=== PATIENT | female | born 1945 | race Caucasian/White ===

== ENCOUNTER 2019-09-21 21:42 | Emergency (ER) | payer MEDICARE ==
[2019-09-21] MEDS ORDERED: Acetaminophen 500 MG Tab PO ONE (22:00)
[2019-09-21] MEDS ORDERED: Ibuprofen 400 MG Tab PO ONE (22:00)
[2019-09-21] MEDS ORDERED: Bupivacaine 0.5% 10 ML SDV ONE (22:17)
[2019-09-21] MEDS: Bupivacaine 0.5% 10 ML SDV INJECT ONE (22:18)
--- NOTE | 2019-09-21 22:52 | CR ---
INDICATION: Pain after fall. TECHNIQUE: Three views right wrist. IMPRESSION: Roughly 40 degrees dorsal angulated impacted Colles fracture of the distal radial metaphysis. Apparent chronic mineralized ossicle inferior from the ulnar styloid likely related to prior trauma. Demineralization diffusely. Dictated by Chris Huertas MD @ Sep 21 2019 10:49PM Signed by Dr. Chris Huertas @ Sep 21 2019 10:50PM
--- NOTE | 2019-09-21 23:17 | EDM.PDOC ---
ED HPI GENERAL MEDICAL PROBLEM - General Chief Complaint: Upper Extremity Injury/Pain Stated Complaint: LEFT ARM INJURY Time Seen by Provider: 09/21/19 21:47 Source of Information: Reports: Patient History Limitations: Reports: No Limitations - History of Present Illness INITIAL COMMENTS - FREE TEXT/NARRATIVE: 73-year-old female with no past medical history presenting with a right wrist injury. Approximately 2 hours ago, the patient was getting out of her tractor when she missed a step and fell, landing on her right wrist. Noted pain and deformity to the distal right forearm. Took 2 Tylenol tablets prior to arrival without relief of pain. Denies striking her head, losing consciousness, or any other complaints. 10/10 pain to the distal right forearm, worse with movement, better with rest, nonradiating. Right Wrist Pain Score (Numeric/FACES): 10 - Related Data Allergies Allergy/AdvReac Type Severity Reaction Status Date / Time Penicillins Allergy Anaphylactic Verified 09/21/19 21:54 Shock Home Meds: Home Meds . 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 Musculoskeletal History: Reports: None Neurological History: Reports: None Psychiatric History: Reports: None Endocrine/Metabolic History: Reports: None Hematologic History: Reports: None Immunologic History: Reports: None Oncologic (Cancer) History: Reports: None Dermatologic History: Reports: None - Infectious Disease History Infectious Disease History: Reports: None - Past Surgical History Head Surgeries/Procedures: Reports: None GI Surgical History: Reports: Appendectomy, Cholecystectomy, Colonoscopy Female Surgical History: Reports: Hysterectomy Social & Family History - Family History Family Medical History: Noncontributory - Tobacco Use Smoking Status *Q: Former Smoker Used Tobacco, but Quit: Yes Month/Year Tobacco Last Used: 2014 - Caffeine Use Caffeine Use: Reports: None - Recreational Drug Use Recreational Drug Use: No Review of Systems - Review of Systems Review Of Systems: See Below Constitutional: Denies: Fever Eyes: Reports: No Symptoms Ears: Reports: No Symptoms Mouth/Throat: Reports: No Symptoms Respiratory: Denies: Shortness of Breath Cardiovascular: Denies: Chest Pain GI/Abdominal: Denies: Abdominal Pain, Nausea, Vomiting Musculoskeletal: Reports: Arm Pain Skin: Reports: Bruising Neurological: Denies: Confusion, Headache, Paresthesia, Tingling Psychiatric: Reports: No Symptoms ED EXAM, GENERAL - Physical Exam Exam: See Below Free Text/Narrative:: Vital signs reviewed. Nursing notes reviewed. Constitutional: Awake, alert, non-distressed. Head: Normocephalic, atraumatic. Eyes: EOMI, conjunctiva normal, no discharge, no scleral icterus. Ears, Nose, Throat: External ears and ears normal, moist oral mucosa. Cardiovascular: 2+ right radial pulse, capillary refill less than 2 seconds in all fingers of the right hand. Pulmonary: normal work of breathing, no accessory muscle use. Abdomen/GI: Soft, nontender, nondistended, no guarding or rigidity, no masses. Musculoskeletal: Deformity of the right distal forearm. Limited range of motion of the right wrist due to pain. Able to make okay sign, thumbs up, and abduct all fingers of the right hand. Integumentary: Appropriate color for ethnicity, warm, dry, no pallor or jaundice , no rash. Neurologic: Alert, answering questions appropriately, normal speech, no facial droop, moving all extremities well. Sensation intact to light touch to all right fingers. Psychiatric: Appropriate mood and affect, normal thought process. ED TRAUMA EXTREMITY PROCEDURES - Joint Reduction Right Wrist Sedation: Hematoma/Fracture Block Local Anesthesia - Bupivicaine (Marcaine): 0.5% Plain Local Anesthetic Volume: 5cc Pre-Procedure NV Status: Normal Post-Procedure NV Status: Normal Technique: Traction/Counter Traction Number of Attempts: 2 Post-Reduction Imaging: Acceptably Reduced, Fracture Seen Joint Reduction Complications: No Progress/Comments: Patient underwent two hematoma blocks with bupivacaine. We performed initial fracture reduction which was unsatisfactory with residual angulatio. Repeated the hematoma block and then repeated the fracture reduction a second time, with improved reduction. There is still some residual angulation. Splinted with Ortho-Glass, stockinette, and Bernard bandages. Circulation, motor, sensation intact pre-and post splinting. Placed in a simple sling. Course - Vital Signs Text/Narrative:: Patient hemodynamically stable, afebrile, well-appearing, looks nontoxic. Differential diagnosis includes but is not limited to: fracture, dislocation, soft tissue injury 2315: X-rays returned showing a roughly 40 degree dorsal angulated impacted Colles' fracture of the distal radial metaphysis. Patient is currently in weighted finger traps and has already undergone hematoma block with bupivacaine at approximately 2230. 2048: Attempted initial fracture reduction attempt, with unsatisfactory reduction. Patient placed back in finger traps, will re-reduced and approximately half an hour. 0045: Repeat reduction performed, awaiting postreduction x-rays. 00 57: Repeat reduction appears improved compared to the initial attempt on postreduction x-rays. Patient placed in a simple arm sling. Will plan to discharge home with outpatient orthopedic surgery follow-up in 1 to 2 weeks. Discussed pain control options, patient opts for extra strength acetaminophen and ibuprofen [id number]. Strict emergency department return precautions were provided, patient indicated understanding. All questions were answered prior to departure. Discharged in good condition. Last Recorded V/S: Last Vital Signs Temp 36.2 C 09/21/19 21:53 Pulse 84 09/21/19 21:53 Resp 18 09/21/19 21:53 BP 133/68 09/21/19 21:53 Pulse Ox 94 L 09/21/19 21:53 - Orders/Labs/Meds Orders: Active Orders 24 hr Category Date Time Status Wrist Comp Min 3V Rt [CR] Stat Exams 09/22/19 00:44 Taken Meds: Medications Discontinued Medications Generic Name Dose Route Start Last Admin Trade Name Rodrigo PRN Reason Stop Dose Admin Acetaminophen 1,000 mg 09/21/19 22:00 09/21/19 22:09 Tylenol Extra Strength PO 09/21/19 22:01 1,000 mg ONETIME ONE Administration Bupivacaine HCl Confirm 09/21/19 22:17 Sensorcaine-Mpf 0.5% Administered 09/21/19 22:18 Dose 10 ml .ROUTE .STK-MED ONE Bupivacaine HCl Confirm 09/22/19 00:33 Sensorcaine-Mpf 0.5% Administered 09/22/19 00:34 Dose 10 ml .ROUTE .STK-MED ONE Ibuprofen 400 mg 09/21/19 22:00 09/21/19 22:09 Motrin PO 09/21/19 22:01 400 mg ONETIME ONE Administration Departure - Departure Time of Disposition: 00:58 Disposition: Home, Self-Care 01 Condition: Good Clinical Impression: Closed Colles' fracture Qualifiers: Encounter type: initial encounter Laterality: right Qualified Code(s): S52.531A - Colles' fracture of right radius, initial encounter for closed fracture - Discharge Information *PRESCRIPTION DRUG MONITORING PROGRAM REVIEWED*: Not Applicable *COPY OF PRESCRIPTION DRUG MONITORING REPORT IN PATIENT RICHARD: Not Applicable Instructions: Forearm Fracture, Pediatric, [id number], Closed Reduction for Wrist or Forearm, Cast or Splint Care, Adult Referrals: [facility] - Orthopaedics [Provider Group] - 1 Week (For follow-up of Colles' fracture) Forms: ED Department Discharge Additional Instructions: Be sure to keep your splint dry. If it is raining, snowing, or if you are going to bathe or shower, you will need to cover your splint with a large plastic bag. If the splint becomes wet, it will dissolve and no longer be functional and you will have to have the splint replaced in the emergency department or in the orthopedic surgery clinic. If you notice that your fingers or toes become numb, start tingling, turned pale or purple, those are signs at the splint may be on too tightly. Gently loosen the adhesive bandages and immediately return to the emergency department so we can reevaluate the splint placement. Thank you for choosing the [facility] emergency department in [place] for your medical needs today. It was a pleasure caring for you. You were seen in the emergency department for a right forearm (Colles') fracture. You will need to follow-up in the orthopaedic surgery clinic in 1 to 2 weeks for follow-up fracture care. There is a chance that you will need an operation to fix your fractured forearm. For pain relief, I recommend extra strength [id number] acetaminophen, 500- 1000 mg every 6 hours. I also recommend over the strength ibuprofen, 400 mg every 6 hours. Maximum 2400 mg of acetaminophen or 3200 mg of ibuprofen in 24- hour period. Please return the emergency department immediately if your symptoms worsen or if you feel worse. The following information is given to patients seen in the emergency department who are being discharged. This information is to outline your options for follow -up care. We provide all patients seen in our emergency department with a follow -up referral. The need for follow-up, as well as the timing and circumstances, are variable depending upon the specifics of your emergency department visit. If you don't have a primary care physician on staff, we will provide you with a referral. We always advise you to contact your personal physician following an emergency department visit to inform them of the circumstance of the visit and for follow-up with them and/or the need for any referrals to a consulting specialist. The emergency department will also refer you to a specialist when appropriate. This referral assures that you have the opportunity for follow-up care with a specialist. All of these measure are taken in an effort to provide you with optimal care, which includes your follow-up. Under all circumstances we always encourage you to contact your private physician who remains a resource for coordinating your care. When calling for follow-up care, please make the office aware that this follow-up is from your recent emergency room visit. If for any reason you are refused follow-up, please contact the [facility] Emergency Department at and asked to speak to the emergency department charge nurse. If you do not have a primary care physician that is caring for you, you can contact these clinics below to set up an appointment to establish care: [facility] [address] [place] [id number] [address] Sepsis Event Note - Evaluation Sepsis Screening Result: No Definite Risk - Focused Exam Vital Signs: Vital Signs Temp Pulse Resp BP Pulse Ox 09/21/19 21:53 36.2 C 84 18 133/68 94 L Date Exam was Performed: 09/22/19 Time Exam was Performed: 01:02 - My Orders Last 24 Hours: My Active Orders 09/22/19 00:44 Wrist Comp Min 3V Rt [CR] Stat - Assessment/Plan Last 24 Hours: My Active Orders 09/22/19 00:44 Wrist Comp Min 3V Rt [CR] Stat
[2019-09-22] MEDS ORDERED: Bupivacaine 0.5% 10 ML SDV ONE (00:33)
--- NOTE | 2019-09-22 00:38 | CR ---
INDICATION: Post reduction TECHNIQUE: Three views right wrist through a cast, 11:39 p.m. COMPARISON: 10:12 p.m. Bones: Impacted distal radius fracture. Joint spaces: Unremarkable. Soft tissues: Unremarkable. IMPRESSION: Impacted distal radius fracture with reduced angulation compared to pre reduction views. Dictated by Pacheco Mahajan MD @ 09/22/2019 12:36:35 AM Dictated by: Pacheco Mahajan MD @ 09/22/2019 00:36:41 (Electronically Signed)
--- NOTE | 2019-09-22 01:17 | CR ---
INDICATION: Postreduction TECHNIQUE: Three views through a cast 12:52 a.m. COMPARISON: 08/25/2019 11:39 p.m. FINDINGS: Bones: Impacted distal radius fracture with reduced angulation compared to pre reduction views. Joint spaces: Unremarkable. Soft tissues: Unremarkable. IMPRESSION: Impacted distal radius fracture with reduced angulation compared to previous junction views. Dictated by Pacheco Mahajan MD @ 09/22/2019 1:15:08 AM Dictated by: Pacheco Mahajan MD @ 09/22/2019 01:15:14 (Electronically Signed)
[2019-09-22] MEDS: Bupivacaine 0.5% 10 ML SDV INJECT ONE (04:30)
== END 2019-09-22 01:09 | disposition home or self-care (01) ==
LOC: MW.ED 21:42
DX: S52.531A Colles' fracture of right radius, initial encounter for closed fracture (principal); Z88.0 Allergy status to penicillin; Z87.891 Personal history of nicotine dependence; W10.9XXA Fall (on) (from) unspecified stairs and steps, initial encounter
CPT/HCPCS: 25605; 73110; 99283; A9270; J3490; 64450; 99282

== ENCOUNTER 2019-09-25 06:35 | Day surgery (SDC) | payer MEDICARE ==
[~2019-09-25 06:35] MED LIST: Lactated Ringers 1,000 ML IV SCH
[2019-09-25] MEDS ORDERED: Bupivacaine 0.25% 10 ML SDV ONE (07:17)
--- NOTE | 2019-09-25 07:30 | PCM.PREANE ---
Preanesthetic Assessment - Anesthesia/Transfusion/Family Hx Anesthesia History: Prior Anesthesia Without Reaction Family History of Anesthesia Reaction: No Transfusion History: Prior Transfusion Without Reaction - Review of Systems General: No Symptoms Pulmonary: No Symptoms Cardiovascular: No Symptoms Gastrointestinal: No Symptoms Neurological: No Symptoms Other: Reports: None - Physical Assessment NPO Status Date: 09/24/19 Vital Signs: Last Vital Signs Temp 97.3 F 09/25/19 06:58 Pulse 71 09/25/19 06:58 Resp 16 09/25/19 06:58 BP 133/70 09/25/19 06:58 Pulse Ox 96 09/25/19 06:58 Height: 5 ft 6 in Weight: 68.039 kg ASA Class: 2 Mental Status: Alert & Oriented x3 Dentition: Reports: Dentures (upper and lower, lower secured with pegs) ROM/Head Extension: Full Lungs: Clear to Auscultation, Normal Respiratory Effort Cardiovascular: Regular Rate, Regular Rhythm - Allergies Allergies/Adverse Reactions: Allergies Allergy/AdvReac Type Severity Reaction Status Date / Time Penicillins Allergy Anaphylactic Verified 09/24/19 13:10 Shock - Blood Blood Available: No - Anesthesia Plan Pre-Op Medication Ordered: None - Acknowledgements Anesthesia Type Planned: General Anesthesia Pt an Appropriate Candidate for the Planned Anesthesia: Yes Alternatives and Risks of Anesthesia Discussed w Pt/Guardian: Yes Pt/Guardian Understands and Agrees with Anesthesia Plan: Yes Additional Comments: PMH:hx seizure, hx PUD, hx anemia s/p transfusion PLAN: ga/lma PreAnesthesia Questionnaire - Past Health History Medical/Surgical History: Denies Medical/Surgical History HEENT History: Reports: Retinal Detachment Other HEENT History: reading glasses, top and bottom dentures, (bottom denture held in by dental implants) Cardiovascular History: Reports: None Respiratory History: Reports: None Gastrointestinal History: Reports: None Genitourinary History: Reports: None 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: Musculoskeletal History: Reports: Fracture Other Musculoskeletal History: hx fx ankle & back as a child Neurological History: Reports: Seizure Other Neuro History: hx of epilepsy, in remission since 1983 Psychiatric History: Reports: None Endocrine/Metabolic History: Reports: None Hematologic History: Reports: Blood Transfusion(s) Other Hematologic History: blood transfusion for PP bleed Immunologic History: Reports: None Oncologic (Cancer) History: Reports: None Dermatologic History: Reports: None - Infectious Disease History Infectious Disease History: Reports: None - Past Surgical History Head Surgeries/Procedures: Reports: None HEENT Surgical History: Reports: Cataract Surgery, Eye Surgery, Oral Surgery, Tonsillectomy Other HEENT Surgeries/Procedures: eye surgery for detached retina Cardiovascular Surgical History: Reports: None Respiratory Surgical History: Reports: None GI Surgical History: Reports: Appendectomy, Cholecystectomy, Colonoscopy Female Surgical History: Reports: Hysterectomy Endocrine Surgical History: Reports: None Neurological Surgical History: Reports: None Musculoskeletal Surgical History: Reports: None Oncologic Surgical History: Reports: None - SUBSTANCE USE Smoking Status *Q: Former Smoker Tobacco Use Within Last Twelve Months: No - HOME MEDS Home Medications: Home Meds Acetaminophen [Tylenol Extra Strength] 2 tab PO ASDIRECTED PRN 09/24/19 [History ] Cetirizine HCl/Pseudoephedrine [ZyrTEC-D] 1 tab PO DAILY 09/24/19 [History] - CURRENT (IN HOUSE) MEDS Current Meds: Current Medications Clindamycin Phosphate 600 mg/ (Premix) 50 mls @ 100 mls/hr IV ONCALL CARMEL Lactated Ringer's (Ringers, Lactated) 1,000 mls @ 100 mls/hr IV ASDIRECTED CARMEL Discontinued Medications Bupivacaine HCl (Sensorcaine-Mpf 0.25%) Confirm Administered Dose 20 ml .ROUTE .STK-MED ONE Stop: 09/25/19 07:18
[2019-09-25] MEDS ORDERED: Propofol 200 MG/20 ML SDV ONE ×2 (07:48)
[2019-09-25] MEDS ORDERED: fentaNYL 100 MCG/2 ML SDV ONE (07:49)
[2019-09-25] MEDS ORDERED: HYDROmorphone 2 MG/ML Syringe ONE ×2 (07:52→09:13)
[2019-09-25] MEDS ORDERED: Lidocaine 2% 5 ML SDV ONE (07:59)
[2019-09-25] MEDS ORDERED: Clindamycin Phosphate in D5W 600 MG in Premix Bag 1 BAG IV SCH ×2 (08:00)
[2019-09-25] MEDS ORDERED: ePHEDrine 50 MG/ML SDV ONE (08:08)
[2019-09-25] MEDS ORDERED: Ondansetron 4 MG/2 ML SDV ONE (08:39)
[2019-09-25] MEDS ORDERED: Ketorolac 30 MG/ML SDV IVPUSH ONE (09:07)
[2019-09-25] MEDS ORDERED: HYDROmorphone 2 MG/ML Syringe IVPUSH ONE (09:10)
--- NOTE | 2019-09-25 09:11 | PCM.OPNOTE ---
- General Post-Op/Procedure Note Date of Surgery/Procedure: 09/25/19 Operative Procedure(s): Closed reduction and percutaneous pinning of right distal radius fracture Findings: Right displaced, angulated, extra-articular distal radius fracture with dorsal comminution Pre Op Diagnosis: Right displaced, angulated, extra-articular distal radius fracture with dorsal comminution Post-Op Diagnosis: Right displaced, angulated, extra-articular distal radius fracture with dorsal comminution Anesthesia Technique: General LMA Primary Surgeon: Mike Swann Brazer Assembler: Epi Rhoades Reason Brazer Assembler Was Necessary: Maintenance of reduction EBL in mLs: 0 Condition: Good Free Text/Narrative:: The risks and benefits of closed reduction and percutaneous pinning of the right distal radius fracture were discussed with the patient. Patient consented to proceed with surgery. All questions were answered. The patient was taken to the operating room. After general anesthesia, she remained in the supine position. The right upper extremity was prepped and draped in the usual sterile manner. A tourniquet was not used because this was a percutaneous pinning case. Closed reduction maneuver was performed. Adequate reduction was confirmed with C -arm. 2 dorsal pins were placed in position confirmed with C-arm. A radial styloid pin was placed with C-arm guidance. Near anatomic reduction was confirmed with AP and lateral views. The pins were then bent and cut. Xeroform and bacitracin ointment were placed over the pins with a sterile gauze and cast padding. Patient was then placed in a short arm volar splint. Patient was accompanied to recovery room in stable condition. Pain management: Hydrocodone, acetaminophen, and ibuprofen. Antibiotics not indicated Venous thrombi embolism prophylaxis not indicated Restrictions: Patient is nonweightbearing on her right upper extremity for 3 months. She should elevate the right hand and wrist above the level of heart to minimize swelling and help with pain management. She may do finger range of motion and apply ice to assist with pain management. Keep splint clean and dry.
[2019-09-25] MEDS ORDERED: Acetaminophen/HYDROcodone 325-5 MG Tab PO PRN (09:42)
--- NOTE | 2019-09-25 10:47 | PCM.POSTAN ---
POST ANESTHESIA ASSESSMENT - MENTAL STATUS Mental Status: Alert - VITAL SIGNS Vital Signs: Last Vital Signs Temp 36.1 C 09/25/19 09:31 Pulse 78 09/25/19 10:31 Resp 15 09/25/19 10:31 BP 120/67 09/25/19 10:31 Pulse Ox 93 L 09/25/19 10:31 - RESPIRATORY Respiratory Status: Respiratory Rate WNL - CARDIOVASCULAR CV Status: Pulse Rate WNL - GASTROINTESTINAL GI Status: No Symptoms - PAIN Pain Score: 2 - POST OP HYDRATION Hydration Status: Adequate & Stable (Doing well. Some ache.)
--- NOTE | 2019-09-25 10:50 | PCM48HPAN ---
Post Anesthesia Note - EVALUATION WITHIN 48HRS OF ANESTHETIC Vital Signs in Normal Range: Yes Patient Participated in Evaluation: Yes Respiratory Function Stable: Yes Airway Patent: Yes Cardiovascular Function Stable: Yes Hydration Status Stable: Yes Pain Control Satisfactory: Yes (Some soreness.) Nausea and Vomiting Control Satisfactory: Yes Mental Status Recovered: Yes Vital Signs: Last Vital Signs Temp 36.1 C 09/25/19 09:31 Pulse 78 09/25/19 10:31 Resp 15 09/25/19 10:31 BP 120/67 09/25/19 10:31 Pulse Ox 93 L 09/25/19 10:31 - COMMENTS/OBSERVATIONS Free Text/Narrative:: Doing well. Some soreness. Ready for discharge.
--- NOTE | 2019-09-26 15:48 | CR ---
Right wrist: 2 fluoroscopic spot views were obtained of the right wrist utilizing C-arm device. Study shows pinning of a distal right radial fracture. Fluoroscopy time given as 13.7 seconds. Impression: 1. Procedural study as noted above. Diagnostic code #1 This report was dictated in MDT
== END 2019-09-25 11:12 | disposition home or self-care (01) ==
LOC: MW.SDS 06:35
PROVIDERS: ATTEND Orthopaedic Surgery
DX: S52.551A Other extraarticular fracture of lower end of right radius, initial encounter for closed fracture (principal); S52.601A Unspecified fracture of lower end of right ulna, initial encounter for closed fracture; Z88.0 Allergy status to penicillin; Z87.891 Personal history of nicotine dependence; V87.8XXA Person injured in other specified noncollision transport accidents involving motor vehicle (traffic), initial encounter
CPT/HCPCS: 25605; 76000; A9270; J1170; J1885; J2001; J2405; J2704; J3010; J3490; J7120

== ENCOUNTER 2023-07-25 13:32 | Emergency (ER) | payer MEDICARE ==
[2023-07-25] MEDS: Sodium Chloride 0.9% 1,000 ML IV ONE (13:55)
[2023-07-25] MEDS: Aspirin 81 MG Tab.Chew PO ONE (13:55)
[2023-07-25 14:00] LABS: BASOPHILS ABSOLUTE AUTO 0.03 K/uL (0.00-0.20); BASOPHILS PERCENT AUTO 0.2 % (0.0-1.0); EOSINOPHILS ABSOLUTE AUTO 0.01 K/uL (0.00-0.45); EOSINOPHILS PERCENT AUTO 0.1 % (0.0-6.0); HEMATOCRIT 40.4 % (37.0-47.0); HEMOGLOBIN 14.4 g/dL (12.0-16.0); IMMATURE GRAN ABSOLUTE AUTO 0.05 K/uL (0.00-0.05); IMMATURE GRAN PERCENT AUTO 0.4 % (0.0-0.4); LYMPHOCYTES ABSOLUTE AUTO 0.88 K/uL (1.00-4.80); LYMPHOCYTES PERCENT AUTO 7.2 % (24.0-44.0); MEAN CORPUSCULAR HGB CONC 35.6 g/dL (32.0-36.0); MEAN CORPUSCULAR VOLUME 95.3 fL (83.0-99.0); MEAN PLATELET VOLUME 8.8 fL (9.4-12.3); MONOCYTES ABSOLUTE AUTO 0.62 K/uL (0.00-0.80); MONOCYTES PERCENT AUTO 5.1 % (0.0-8.0); NEUTROPHILS ABSOLUTE AUTO 10.56 K/uL (1.80-7.70); PLATELET COUNT,PLT 280 K/uL (150-400); RED BLOOD CELL COUNT 4.24 M/uL (4.10-5.30); WHITE BLOOD CELL COUNT,WBC 12.15 K/uL (3.9-11.3)
[2023-07-25 14:27] LABS: A/G RATIO 0.9 (0.9-1.6); BILIRUBIN TOTAL 0.8 mg/dL (0.2-1.0); CALCIUM 9.7 mg/dL (8.5-10.1); CARBON DIOXIDE,CO2 22.7 mmol/L (21.0-32.0); CREATININE 0.9 mg/dL (0.6-1.0); EST CRCL DRUG DOSING (CG) 44.68 mL/min; PROTEIN TOTAL,TP 8.3 g/dL (6.4-8.2); TSH ULTRASENSITIVE 1.5 uIU/mL (0.36-3.74)
[2023-07-25 14:39] LABS: CORONAVIRUS COVID-19 NAA NEGATIVE (NEGATIVE); INFLUENZA A NAA NEGATIVE (NEGATIVE); INFLUENZA B NAA NEGATIVE (NEGATIVE); RESPIRATORY SYNCYTIAL VIR NAA NEGATIVE (NEGATIVE)
[2023-07-25 14:55] LABS: T3 FREE 2.47 pg/mL (2.18-3.98); T4 FREE 0.89 ng/dL (0.76-1.46)
[2023-07-25] MEDS: Iopamidol 755 MG/ML 500 ML Multipack Bottle IVPUSH STA (14:59)
[2023-07-25] MEDS: Ondansetron 4 MG/2 ML SDV IVPUSH ONE (15:00)
[2023-07-25] MEDS: Morphine 4 MG/ML Syringe IVPUSH ONE (15:00)
[2023-07-25 16:41] LABS: APPEARANCE,URINE CLEAR; BILIRUBIN,URINE NEGATIVE (NEGATIVE); COLOR,URINE YELLOW; GLUCOSE,URINE NEGATIVE (NEGATIVE); KETONES,URINE NEGATIVE (NEGATIVE); LEUKOCYTE ESTERASE,URINE NEGATIVE (NEGATIVE); NITRITE,URINE NEGATIVE (NEGATIVE); OCCULT BLOOD,URINE NEGATIVE (NEGATIVE); PH,URINE 5.5 (5.0-8.0); PROTEIN,URINE NEGATIVE (NEGATIVE); UROBILINOGEN,URINE 0.2 EU/dL (<2.0)
== END 2023-07-25 17:13 | disposition home or self-care (01) ==
LOC: MW.ED 13:32
DX: R07.2 Precordial pain (principal); R00.0 Tachycardia, unspecified; I10 Essential (primary) hypertension; Z75.8 Other problems related to medical facilities and other health care; Z88.0 Allergy status to penicillin; Z86.19 Personal history of other infectious and parasitic diseases; Z79.899 Other long term (current) drug therapy; Z90.49 Acquired absence of other specified parts of digestive tract
CPT/HCPCS: 0241U; 36415; 71045; 71275; 80053; 81003; 83735; 83880; 84439; 84443; 84481; 84484; 85025; 85379; 96361; 96374; 96375; 99285; A9270; J2270; J2405; J7030; Q9967; 93010; 99284

== ENCOUNTER 2023-09-27 10:35 | Emergency (ER) | payer MEDICARE ==
[2023-09-27] MEDS: Aspirin 81 MG Tab.Chew PO ONE (10:51)
[2023-09-27] MEDS: Sodium Chloride 0.9% 10 ML Syringe FLUSH PRN (10:51)
[2023-09-27] MEDS: Sodium Chloride 0.9% 2.5 ML Syringe FLUSH PRN (10:51)
[2023-09-27 11:06] LABS: BASOPHILS ABSOLUTE AUTO 0.05 K/uL (0.00-0.20); EOSINOPHILS ABSOLUTE AUTO 0.16 K/uL (0.00-0.45); EOSINOPHILS PERCENT AUTO 3.2 % (0.0-6.0); HEMOGLOBIN 12.8 g/dL (12.0-16.0); IMMATURE GRAN ABSOLUTE AUTO 0.01 K/uL (0.00-0.05); IMMATURE GRAN PERCENT AUTO 0.2 % (0.0-0.4); LYMPHOCYTES ABSOLUTE AUTO 1.05 K/uL (1.00-4.80); MEAN CORPUSCULAR HEMOGLOBIN 34.6 pg (28.0-32.0); MEAN CORPUSCULAR HGB CONC 34.6 g/dL (32.0-36.0); MEAN PLATELET VOLUME 8.6 fL (9.4-12.3); MONOCYTES ABSOLUTE AUTO 0.63 K/uL (0.00-0.80); MONOCYTES PERCENT AUTO 12.6 % (0.0-8.0); NEUTROPHILS ABSOLUTE AUTO 3.11 K/uL (1.80-7.70); PLATELET COUNT,PLT 286 K/uL (150-400); WHITE BLOOD CELL COUNT,WBC 5.01 K/uL (3.9-11.3)
[2023-09-27 11:20] LABS: INR 0.95 (0.86-1.11)
[2023-09-27 11:38] LABS: A/G RATIO 0.8 (0.9-1.6); ALBUMIN 3.5 g/dL (3.4-5.0); BILIRUBIN TOTAL 0.8 mg/dL (0.2-1.0); CALCIUM 9.5 mg/dL (8.5-10.1); CARBON DIOXIDE,CO2 24.2 mmol/L (21.0-32.0); EST CRCL DRUG DOSING (CG) 43.74 mL/min; POTASSIUM,K 4.1 mmol/L (3.5-5.1); PROTEIN TOTAL,TP 7.8 g/dL (6.4-8.2); TSH ULTRASENSITIVE 2.54 uIU/mL (0.36-3.74)
[2023-09-27] MEDS: Lisinopril 10 MG Tab PO ONE (12:03)
[2023-09-27] MEDS: Furosemide 20 MG Tab PO ONE (12:03)
[2023-09-27 12:17] LABS: CORONAVIRUS COVID-19 NAA NEGATIVE (NEGATIVE); INFLUENZA A NAA NEGATIVE (NEGATIVE); INFLUENZA B NAA NEGATIVE (NEGATIVE); RESPIRATORY SYNCYTIAL VIR NAA NEGATIVE (NEGATIVE)
[2023-09-27] MEDS: Codeine/Promethazine 10-6.25 MG/5 ML Syrup 5 ML UD Syringe PO STA (13:55)
== END 2023-09-27 14:02 | disposition home or self-care (01) ==
LOC: MW.ED 10:35
DX: R07.2 Precordial pain (principal); R79.89 Other specified abnormal findings of blood chemistry; I10 Essential (primary) hypertension; Z88.0 Allergy status to penicillin; Z79.51 Long term (current) use of inhaled steroids; Z79.899 Other long term (current) drug therapy; Z90.49 Acquired absence of other specified parts of digestive tract; Z90.710 Acquired absence of both cervix and uterus; Z75.8 Other problems related to medical facilities and other health care
CPT/HCPCS: 0241U; 36415; 71045; 80053; 83880; 84443; 84484; 85025; 85610; 93005; 99285; A9270; J3490; 93010; 99283

== ENCOUNTER 2024-02-13 06:59 | Day surgery (SDC) | payer MEDICARE ==
[~2024-02-13 06:59] MED LIST changes: -Lactated Ringers 1,000 ML IV SCH; +Sodium Chloride 0.9% 10 ML Syringe FLUSH PRN; +Sodium Chloride 0.9% 2.5 ML Syringe FLUSH PRN; +Sodium Chloride 0.9% 20 ML SDV IV PRN
[2024-02-13] MEDS ORDERED: Lidocaine 2% 5 ML SDV ONE (07:45)
[2024-02-13] MEDS ORDERED: propofoL 50 ML ONE (07:45)
[2024-02-13] MEDS: Lactated Ringers 1,000 ML IV SCH (07:49)
== END 2024-02-13 09:25 | disposition home or self-care (01) ==
LOC: MW.SDS 06:59
PROVIDERS: ATTEND Surgery
DX: Z12.11 Encounter for screening for malignant neoplasm of colon (principal); K21.00 Gastro-esophageal reflux disease with esophagitis, without bleeding; K44.9 Diaphragmatic hernia without obstruction or gangrene; K22.2 Esophageal obstruction; K57.30 Diverticulosis of large intestine without perforation or abscess without bleeding; E03.9 Hypothyroidism, unspecified; I10 Essential (primary) hypertension; Z87.19 Personal history of other diseases of the digestive system; Z86.0100 Personal history of colon polyps, unspecified; Z90.49 Acquired absence of other specified parts of digestive tract; Z88.0 Allergy status to penicillin; Z91.030 Bee allergy status; Z91.018 Allergy to other foods; Z79.899 Other long term (current) drug therapy; Z79.890 Hormone replacement therapy; Z79.01 Long term (current) use of anticoagulants; Z87.891 Personal history of nicotine dependence
CPT/HCPCS: 43239; 43249; 45378; C1726; J2704; J7120; 00813; 99100; J3490